=== PATIENT | male | born 1990 | race Caucasian/White ===

== ENCOUNTER → 2019-12-22 14:29 | Outpatient (CLI) | payer OTHER, SELFPAY ==
[2019-12-22 14:14] VITALS: BMI 25.0
[2019-12-22 15:28] LABS: Absolute Lymphocyte Count 1.92 X10^3/uL (0.83-4.51); Absolute Neutrophil Count 3.2 X10^3/uL (2.0-7.7); Basophil# 0.09 X10^3/uL; Basophil% 1.6 % (0-1); Eosinophil# 0.13 X10^3/uL; Eosinophils% 2.3 % (0-5); Hematocrit 43.2 % (40-54); Hemoglobin 14.7 g/dL (13.0-16.5); Lymphocyte # 1.92 X10^3/ul (4.0); Lymphocyte % 33.9 % (19-41); Mean Corpuscular Hgb 30.5 pg (27.0-32.0); Mean Corpuscular Volume 89.6 fL (80-94); Mean Platelet Vol. 10.1 fl (6.2-12.0); Monocyte# 0.31 X10^3/uL; Monocyte% 5.5 % (0-10); NRBC Flagged by Analyzer 0 % (0-5); Neutrophil # 3.21 X10^3/uL (2.7-7.7); Neutrophil % 56.5 % (47-70); Platelet Count 239 K/mm3 (150-450); RBC Distribution Width CV 12.6 % (11.6-14.6); RBC Distribution Width SD 41.2 fl (35.1-43.9); Red Blood Count 4.82 M/mm3 (4.6-6.2); White Blood Count 5.7 K/mm3 (4.4-11.0)
[2019-12-22 15:43] LABS: ALB/GLOB Ratio 1.4 RATIO (0.9-2.4); AST(SGOT) 17 U/L (15-37); Alanine Aminotransfer ALT/SGPT 22 U/L (16-61); Albumin, Serum 4.1 g/dL (3.2-5.0); Alkaline Phosphatase 52 U/L (45-117); Anion Gap 4 (5-15); BUN 12 mg/dL (7-18); BUN/Creat Ratio 12.1 RATIO (10-20); Calcium,Total 9.2 mg/dL (8.5-10.1); Chloride 107 mmol/L (98-107); Creatinine, Serum 0.99 mg/dL (0.70-1.30); EST Glomerular Filtration Rate 94 mL/min (>60); Est Glom Filt Rate - Afr Amer 113 mL/min (>60); Glucose 90 mg/dL (74-106); Potassium 4.3 mmol/L (3.5-5.1); Protein, Total 7.1 g/dL (6.4-8.2); Sodium Level 141 mmol/L (136-145)
== END ==
LOC: BIMLAB 14:30
PROVIDERS: PCP Internal Medicine; Referring Provider Internal Medicine; Visit Provider Internal Medicine
DX: R06.02 Shortness of breath (principal)
CPT/HCPCS: 36415; 80053; 85025

== ENCOUNTER → 2020-02-04 12:44 | Outpatient (CLI) | payer OTHER, SELFPAY ==
[2019-12-22 14:14] VITALS: BMI 25.0
--- NOTE | 2020-02-04 14:44 | PFTCOMP_ITS ---
COMPLETE PULMONARY FUNCTION TEST INTERPRETATION Brief HPI: Patient is a 29 year old male, currently under the care of Dr. Jacobs, who presents to [facility] for complete pulmonary function tests secondary to diagnosis of dyspnea. Respiratory therapist reports good effort and reproducible results. Interpretation: Forced expiration spirometry shows no large airways obstructive ventilatory defect with an FEV1 of 111% predicted. There is no significant bronchodilator response by strict ATS criteria. Spirograms are of good quality and plateau normally. The respiratory flow volume loop shows a normal pattern. Lung volumes by body plethysmography show a normal total lung capacity at 6.94 L, 92% predicted. All other lung volumes are within normal limits. Diffusion capacity by carbon monoxide is normal at 114% predicted. The airway resistance is normal. No previous pulmonary function tests were available for review. Impression: These pulmonary function tests are within normal limits. Could consider bronchoprovocation if asthma is a consideration.
== END ==
PROVIDERS: PCP Internal Medicine; Referring Provider Internal Medicine; Visit Provider Internal Medicine
DX: R06.02 Shortness of breath (principal)
CPT/HCPCS: 94060; 94726; 94729

== ENCOUNTER 2020-06-09 05:59 | Day surgery (SDC) | payer OTHER, SELFPAY ==
[2020-02-16 16:43] VITALS: BMI 25.0
[2020-06-08 15:17] LABS: Hematocrit 46.2 % (40-54); Hemoglobin 15.7 g/dL (13.0-16.5); Mean Corpuscular Hgb 30.1 pg (27.0-32.0); Mean Corpuscular Volume 88.7 fL (80-94); Mean Platelet Vol. 10.1 fl (6.2-12.0); Platelet Count 278 K/mm3 (150-450); RBC Distribution Width CV 12.1 % (11.6-14.6); RBC Distribution Width SD 39.8 fl (35.1-43.9); Red Blood Count 5.21 M/mm3 (4.6-6.2); White Blood Count 6.6 K/mm3 (4.4-11.0)
[2020-06-09] VITALS (7 sets, daily range): BP systolic 119–136; BP diastolic 80–92; PULSE 75–98; RESP 16; TEMP 36.4–37.1; O2SAT 94–98; BMI 20.1
[2020-06-09] MEDS: Lactated Ringers 1,000 ML 100 ML IV ×2 (06:41→08:44)
--- NOTE | 2020-06-09 07:30 | NASAL_PTH ---
PATIENT: KY RUIZ LOC: [facility] U#:[id number] AGE/SX: 29/M ROOM: RE06/09/[address]: Dr. Adrian Franklin MD : 1990 BED: DIS: 06/09/2020 SPEC #: [id number] RECD: 06/09/20 09:33 STATUS: BUSTER TAMMI #: [id number] KIP: 06/09/20 07:[address]: Adrian Franklin DEPT: SURGICAL PATHOLOGY RECD BY: Sandra Murillo ENTERED: 06/09/20 10:41 SP TYPE: NASAL SPEC OTHR DR: Dr. Kaitlyn Jacobs MD Tissues: Nasal septum, NOS Procedures: Decalcification bone/plaque Surgery Specimen Level III HEADER OPERATION: Septoplasty PRE-OP DIAGNOSIS: Deviated nasal septum TISSUE SUBMITTED: Nasal septum contents MICROSCOPIC DIAGNOSIS Nasal septum, septoplasty: Fragments of benign hyaline cartilage and bone (clinically deviated septum. AM:kip 06/14/20 MICROSCOPIC DESCRIPTION Slides are reviewed. GROSS DESCRIPTION Received in fixative is one container labeled with the patient's name and designated nasal septum contents. The specimen consists of multiple irregular fragments of bone and cartilage that in aggregate measure 4 x 4 x 0.5 cm. Kiln Transfer Operator tissue is submitted in one cassette after decalcification. / SJ:kip 06/09/20 TC:5 CPT: 38310, 07274
[2020-06-09] MEDS: Oxymetazoline 0.05% 1 SPRAY SPRAY.BTL 15 SPRAY (07:52)
[2020-06-09] MEDS: Bacitracin 500 UNITS/GM PACKET (07:53)
[2020-06-09] MEDS: Lidocaine 4% 50 ML Bottle (07:53)
--- NOTE | 2020-06-09 08:35 | DCINST_ITS ---
You will use the following diet at home:: No restrictions, Regular Your food should be the consistency of: Regular Discharge Activity: Return to Normal Activity, May not drive while taking narcotic pain medications. Call your doctor if your incision/area has: Sudden Increased Bleeding, Increased Pain/ Swelling Call your doctor if you observe: Fever of 101 or Higher, Uncontrolled pain Allergies/Adverse Reactions: Allergies Penicillins Allergy (Verified 06/01/20 14:08) Unknown Medications to take at Discharge NK 06/01/20 Primary Care Physician: Kaitlyn Jacobs MD [Primary Care Provider] - Test Results: Test results from this visit will be discussed in further detail at your follow- up appointment, if applicable. Please Follow Up With: Adrian Franklin MD When: 2 weeks
--- NOTE | 2020-06-09 08:36 | PCM.OPRPT ---
Problem List (1) Deviated nasal septum Status: Chronic Report of Operation Date of Procedure: 06/09/20 Pre-Operative Diagnosis: Deviated nasal septum Post-Operative Diagnosis: Same Surgery/Procedure Performed:: Septoplasty Description of Surgical Findings:: Ortega is a 29-year-old male with chronic nasal obstruction and congestion. This is failed appropriate medical therapy secondary to his severe anatomic septal deviation with near complete obstruction of the right nostril and the above surgery was offered hopes alleviation of these complaints. He was eager to proceed. The risks of coronavirus exposure in this was also discussed and he is agreeable to accept these risk in exchange for relief of his underlying complaints. The risks, alternatives, potential complications, and benefits were discussed at length and any questions answered to the patient and/or caregiver's satisfaction. Witnessed informed consent was obtained in the office, and the patient and/or caregiver was agreeable to proceed. Procedure went as follows: The patient was identified in the preoperative holding and brought to the operating room, was placed under general anesthesia and intubated. When appropriate anesthesia was obtained, pledgets soaked in a 50-50 mixture of oxymetazoline and 4% topical lidocaine were placed to decongest the nasal mucosa. The nasal septum was then injected beginning on the left side with 1% lidocaine with 100,000 epinephrine for a total of 5 mL. The pledgets were then removed and the left nasal cavity examined. There was noted to be significant nasal septal deviation to the right. Using a 15 blade scalpel, a hemitransfixion incision was then made on the left side and using the Jorje elevator a subperichondrial/periosteal flap was elevated. The septum was then transected at the bony cartilaginous junction and a similar flap raised on the contralateral side. Using a Joel forceps, the septum was then sharply transected superiorly and the deviated portions removed with a Delmi forceps. The base of the columella was then trimmed to release the tension causing the bowing and right septal deviation which relaxed this into a midline position and equalized the nasal in length bilaterally. The hemitransfixion incision was then closed with interrupted 4-0 chromic gut suture followed by a 4-0 plain quilting suture to reapproximate the mucosal flaps. No Peraza splints were applied as the patient suffered significant anxiety over his nasal obstruction in the hopes of immediate improvement of his nasal breathing and to assist in comfort in his postoperative phase. An NG tube was then placed to decompress the stomach and the patient returned to anesthesia, revived and extubated having tolerated the procedure well. Type of Anesthesia:: General Anesthesiologist: Serafin Castrejon Special Medications: none Specimen's removed: nasal septal contents Drains: none Estimated Blood Loss (mL): 50 mL Fluids Replaced: 1000 mL Grafts/Implants Used: none - Complications none - Admit VTE Documentation VTE Present on Admission: No VTE Mechan Device Prophylaxis: SCD's VTE Pharm Prophylaxis ordered?: No
[2020-06-09] MEDS: Ibuprofen 200 MG Tablet 400 MG PO (09:57)
[2020-06-09] MEDS: HYDROcodone Bitartrate/Apap 5/325 Tablet PO (09:58)
== END 2020-06-09 10:17 | disposition home or self-care (01) ==
LOC: SDC 06:03 → AC 06:03
PROVIDERS: Anesthesiology; PCP Internal Medicine; Referring Provider Otolaryngology; Visit Provider Otolaryngology
PROC: (CPT 30520; principal; 2020-06-09 07:15)
DX: J34.2 Deviated nasal septum (principal); Z20.828 Contact with and (suspected) exposure to other viral communicable diseases
CPT/HCPCS: 00160; 30520; 36415; 85027; 87426; 88304; 88311; J7120; J2405